=== PATIENT | male | born 1945 | race Caucasian/White ===

== ENCOUNTER 2022-12-28 09:57 | Outpatient (AMB) | payer BC, SELFPAY ==
[2022-12-28 10:05] VITALS: BP 132/70; PULSE 68; O2SAT 99; BMI 26.0
--- NOTE | 2022-12-28 10:05 | MHC.OFFVIS ---
Intake Vital Signs 12/28/22 10:05 Height 5 ft 7 in Weight 166 lb BMI 26.0 BP 132/70 Blood Pressure Location Rt brachial Position Sitting Pulse 68 Pulse Oximetry (%) 99 Oxygen Delivery Method Room Air Intake Visit Reasons: chronic cough Nursing Department Chairperson Required: No Vending Machine Technician: Vending Machine Technician offered & declined Accompanied by: Self / Same As Patient Allergies No Known Allergies Allergy (Verified 12/28/22 10:09) Medication List - Last Reconciled 12/28/22 by Lucero Chavarria LPN No Known Home Meds HPI chronic cough HPI Details William is a very pleasant 77 year old male, former smoker with less than 10 pack year smoking history, quit 55 years ago, with underlying pulmonary nodules. He was referred by PCP for pulmonary evaluation. He reports persistent dry chronic cough that started about one year ago but over the last few months has noticed significant improvement without any intervention. He denies chest tightness, wheezing or dyspnea. He was sent for chest CT which revealed small pulmonary nodules, less than 2mm, as well as mild emphysematous changes, full report below. He is quite active, exercising multiple times per week and can run 1-2 miles without any respiratory symptoms. He denies any personal or family history of respiratory conditions. 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 [facility] Social History (Updated 12/28/22 @ 10:10 by Lucero Chavarria LPN) Tobacco use type: Cigarette Cigarette Packs Per Day: 1 Years Smoked: 5 Review of Systems Const Denies chills, Denies excessive sweating, Denies fever(s), Denies headache(s) and Denies night sweats Eyes Denies dry eyes, Denies irritation and Denies itchy eyes ENT Reports Normal hearing present, Denies headache(s), Denies nasal congestion, Denies nasal discharge, Denies post nasal drip and Denies sore throat Card Denies chest pain, Denies chest pain at rest, Denies chest pain with activity, Denies claudication, Denies leg edema, Denies dyspnea, Denies dyspnea on exertion, Denies orthopnea and Denies paroxysmal nocturnal dyspnea Resp Denies chest congestion, Denies excessive phlegm production, Denies pain on inspiration, Denies pain with cough, Denies dyspnea, Denies dyspnea on exertion, Denies stridor and Denies wheezing Musc Denies myalgias Neuro Reports Normal hearing present and Denies headache(s) Endo Denies excessive sweating Mariano/Lymph Denies lymphadenopathy Aller/Immun Denies itchy eyes, Denies seasonal rhinorrhea and Denies wheezing Physical Exam Vital Signs: Last Vital Signs Pulse 68 12/28/22 10:05 BP 132/70 12/28/22 10:05 Pulse Ox 99 12/28/22 10:05 Oxygen Delivery Method Room Air 12/28/22 10:05 BMI result Body Mass Index 26.0 Const General: cooperative, healthy appearing, comfortable, no acute distress, well developed and alert Orientation/consciousness: patient oriented x3 Limitations: no limitations HEENT Head: Yes normal to inspection, Yes normocephalic and Yes atraumatic Ears: hearing grossly normal bilaterally and external ears normal Eyes General: appearance normal, both eyes and all related structures Eyelids: Yes eyelids normal Sclerae: sclerae normal EOM: EOMs intact bilaterally Neck Neck: Yes normal visual inspection and Yes no lymphadenopathy Lymphatic: no lymphadenopathy noted Chest Chest palpation & inspection: normal inspection of the chest Resp Effort & Inspection: normal respiratory effort, able to speak in complete sentences, no audible wheezes, no cough, no stridor, not tachypneic, no tripod positioning and no use of accessory muscles Auscultation: clear to auscultation bilaterally Cardio Jugular venous distension: no JVD Rate: regular rate Rhythm: regular rhythm Skin Other: warm, dry General skin exam: no rashes or lesions noted Neuro General: patient oriented x3 Cranial nerves: Yes Normal hearing present Cognition (Neuro): normal cognition Gait exam (Neuro): Normal gait present Extrem General: Yes normal to inspection, Yes capillary refill normal, Yes no clubbing, cyanosis or edema and Yes no pedal edema Psych Appearance: grossly normal and well kempt Speech and movement: Normal speech and movement present and Clear speech present Affect: normal affect Attitude: cooperative Thought process: Normal thought process present Thought content: Normal thought content present Insight: Good insight present (Psych) Judgement: Good judgement present (Psych) Results Reviewed Results Reviewed: Assessment & Plan Assessment & Plan (1) Chronic cough: Code(s): R05.3 - Chronic cough (2) Emphysema lung: Code(s): J43.9 - Emphysema, unspecified (3) Multiple pulmonary nodules: Code(s): R91.8 - Other nonspecific abnormal finding of lung field Plan William reports chronic cough has slowly improved without intervention and is not interested in any medications at this time. He denies any other respiratory symptoms and exam was unremarkable. Will send for PFT to throughly evaluate Reviewed chest CT results from 2021, which revealed emphyseamouts changes, biapical scarring and small pulmonary nodules less than 2 mm. Will send for repeat chest CT to assess for stability of noldules. If stable, no further imaging warranted unless new symptoms develop. All questions were answered and patient is in agreement of plan. Will follow up in 4-6 weeks to review results. Orders: Orders PFT pulmonary function test Today J43.9 - Emphysema, unspecified, R05.3 - Chronic cough CT chest wo IV con Today R05.3 - Chronic cough, R91.8 - Other nonspecific abnormal finding of lung field Coding Level of Care Code New Pt Level 4 (52563) Diagnoses Chronic cough R05.3 Emphysema lung J43.9 Multiple pulmonary nodules R91.8
== END 2022-12-28 10:30 | disposition home or self-care (01) ==
PROVIDERS: PCP Internal Medicine; Visit Provider Nurse Practitioner Family
DX: R05.3 Chronic cough (principal); J43.9 Emphysema, unspecified; R91.8 Other nonspecific abnormal finding of lung field
CPT/HCPCS: 99204

== ENCOUNTER → 2022-12-28 09:57 | Outpatient (BNVA) | payer BC, SELFPAY | PROVIDERS: PCP Internal Medicine; Visit Provider Nurse Practitioner Family ==

== ENCOUNTER 2023-02-02 08:02 | Outpatient (REF) | payer BC, SELFPAY ==
--- NOTE | 2023-02-02 08:51 | PFT_ITS ---
Spirometry [] Lung Volumes [] Diffusion Capacity [] Methacholine Challenge [] Flow Volume Loops [] MVV [] MIP/MEP(Max inspiratory pressure/Max expiratory pressure) [] 6 Minute Walk Test [] ABG [] Interpretation [] MTDD
== END 2023-02-02 08:03 | disposition home or self-care (01) ==
LOC: HO.RESP 08:02
PROVIDERS: PCP Internal Medicine; Visit Provider Nurse Practitioner Family
DX: R05.3 Chronic cough (principal); J43.9 Emphysema, unspecified
CPT/HCPCS: 94010; 94727; 94729

== ENCOUNTER → 2023-02-02 08:51 | Outpatient (BNV) | payer BC, SELFPAY | PROVIDERS: PCP Internal Medicine; Visit Provider Internal Medicine Pulmonary Disease | DX: J43.9 Emphysema, unspecified (principal) | CPT/HCPCS: 94060; 94727; 94729 ==

== ENCOUNTER 2023-03-02 15:05 | Outpatient (REF) | payer BC, SELFPAY ==
--- NOTE | ~2023-03-02 | CT_ITS ---
EXAMINATION: CT CHEST WITHOUT CONTRAST CLINICAL INFORMATION: Chronic cough. COMPARISON: 12/09/2022 2 TECHNIQUE: Multidetector volumetric CT imaging of the chest was done. Axial MIP volume rendering provided. Sagittal and coronal reformatted images were obtained. This CT examination was performed using dose optimization techniques as appropriate, variously including the following: *Automated exposure control *Adjustment of mA and/or kV according to patient size (this includes techniques or standardized protocols for targeted exams where dose is matched to indication/reason for exam; i.e. extremities or head) *Use of iterative reconstruction technique DLP: 171 mGy-cm FINDINGS: LUNGS: Stable mild scarring at the lung apices. Mild centrilobular emphysema. No suspicious pulmonary nodules. No focal consolidation. Linear scarring versus atelectasis in the right lower lobe. Central airways are patent. MEDIASTINUM: No bulky axillary, hilar or mediastinal lymphadenopathy. Great vessels are of normal caliber. Heart size is normal. No pericardial effusion. CORONARY ARTERY CALCIFICATION: Mild. PLEURA: There is no pleural effusion. No pleural mass or thickening. UPPER ABDOMEN: No adrenal mass. OSSEOUS STRUCTURES: No destructive bone lesion. CT/CT chest wo IV con IMPRESSION: No acute intrathoracic abnormality.
== END 2023-03-02 15:06 | disposition home or self-care (01) ==
LOC: HO.CT 15:05
PROVIDERS: PCP Internal Medicine; Visit Provider Nurse Practitioner Family
DX: R05.3 Chronic cough (principal); R91.8 Other nonspecific abnormal finding of lung field
CPT/HCPCS: 71250

== ENCOUNTER 2023-03-10 13:42 | Outpatient (AMB) | payer BC, SELFPAY ==
--- NOTE | 2023-03-10 14:32 | MHC.OFFVIS ---
Intake Vital Signs 03/10/23 14:53 BP 116/64 Blood Pressure Location Lt brachial Position Sitting Pulse 64 Pulse Source Pulse Oximeter Pulse Oximetry (%) 99 Oxygen Delivery Method Room Air Intake Visit Reasons: chronic cough: f/u ct and pft Allergies No Known Allergies Allergy (Verified 12/28/22 10:09) HPI chronic cough: f/u ct and pft HPI Details William is a very pleasant 78 year old male, former smoker with less than 10 pack year smoking history, quit 55 years ago, with underlying pulmonary nodules. He was referred by PCP for pulmonary evaluation. He was initially referred for persistent dry chronic cough that started about one year ago but over the last few months has noticed significant improvement without any intervention. He reports minimal coughing at this time. He denies chest tightness, wheezing or dyspnea. He continues to exercise multiple times per week and can run 1-2 miles without any respiratory symptoms, although does note some decrease in endurance. Today he presents to review PFT and chest CT. [facility] Social History (Updated 12/28/22 @ 10:10 by Lucero Chavarria LPN) Tobacco use type: Cigarette Cigarette Packs Per Day: 1 Years Smoked: 5 Review of Systems Const Denies chills, Denies excessive sweating, Denies fever(s), Denies headache(s) and Denies night sweats Eyes Denies dry eyes, Denies irritation and Denies itchy eyes ENT Reports Normal hearing present, Denies headache(s), Denies nasal congestion, Denies nasal discharge, Denies post nasal drip and Denies sore throat Card Denies chest pain, Denies chest pain at rest, Denies chest pain with activity, Denies claudication, Denies leg edema, Denies dyspnea, Denies dyspnea on exertion, Denies orthopnea and Denies paroxysmal nocturnal dyspnea Resp Denies chest congestion, Denies excessive phlegm production, Denies pain on inspiration, Denies pain with cough, Denies dyspnea, Denies dyspnea on exertion, Denies stridor and Denies wheezing Musc Denies myalgias Neuro Reports Normal hearing present and Denies headache(s) Endo Denies excessive sweating Mariano/Lymph Denies lymphadenopathy Aller/Immun Denies itchy eyes, Denies seasonal rhinorrhea and Denies wheezing Physical Exam Vital Signs: Last Vital Signs Pulse 64 03/10/23 14:53 BP 116/64 03/10/23 14:53 Pulse Ox 99 03/10/23 14:53 Oxygen Delivery Method Room Air 03/10/23 14:53 Const General: cooperative, healthy appearing, comfortable, no acute distress, well developed and alert Orientation/consciousness: patient oriented x3 Limitations: no limitations HEENT Head: Yes normal to inspection, Yes normocephalic and Yes atraumatic Ears: hearing grossly normal bilaterally and external ears normal Eyes General: appearance normal, both eyes and all related structures Eyelids: Yes eyelids normal Sclerae: sclerae normal EOM: EOMs intact bilaterally Neck Neck: Yes normal visual inspection and Yes no lymphadenopathy Lymphatic: no lymphadenopathy noted Chest Chest palpation & inspection: normal inspection of the chest Resp Effort & Inspection: normal respiratory effort, able to speak in complete sentences, no audible wheezes, no stridor, not tachypneic, no tripod positioning and no use of accessory muscles Auscultation: clear to auscultation bilaterally Cardio Jugular venous distension: no JVD Rate: regular rate Rhythm: regular rhythm Skin Other: warm, dry General skin exam: no rashes or lesions noted Neuro General: patient oriented x3 Cranial nerves: Yes Normal hearing present Cognition (Neuro): normal cognition Gait exam (Neuro): Normal gait present Extrem General: Yes normal to inspection, Yes capillary refill normal, Yes no clubbing, cyanosis or edema and Yes no pedal edema Psych Appearance: grossly normal and well kempt Speech and movement: Normal speech and movement present and Clear speech present Affect: normal affect Attitude: cooperative Thought process: Normal thought process present Thought content: Normal thought content present Insight: Good insight present (Psych) Judgement: Good judgement present (Psych) Results Reviewed Results Reviewed: [address] [address] [address] Scan Report Signed Patient: William Rachel MR#: [id number] : 1945 Acct:[id number] Age/Sex: 78 / M ADM Date: 03/02/23 Loc: HO.CT Attending Dr: Lea Baum NP Ordering Physician: Lea Baum NP Date of Service: 03/02/23 Procedure(s): CT chest wo IV con Accession Number(s): [id number] cc: EAGLE STEEN MD; Stucenski,Lea [employer]~ EXAMINATION: CT CHEST WITHOUT CONTRAST CLINICAL INFORMATION: Chronic cough. COMPARISON: 12/09/2022 2 TECHNIQUE: Multidetector volumetric CT imaging of the chest was done. Axial MIP volume rendering provided. Sagittal and coronal reformatted images were obtained. This CT examination was performed using dose optimization techniques as appropriate, variously including the following: *Automated exposure control *Adjustment of mA and/or kV according to patient size (this includes techniques or standardized protocols for targeted exams where dose is matched to indication/reason for exam; i.e. extremities or head) *Use of iterative reconstruction technique DLP: 171 mGy-cm FINDINGS: LUNGS: Stable mild scarring at the lung apices. Mild centrilobular emphysema. No suspicious pulmonary nodules. No focal consolidation. Linear scarring versus atelectasis in the right lower lobe. Central airways are patent. MEDIASTINUM: No bulky axillary, hilar or mediastinal lymphadenopathy. Great vessels are of normal caliber. Heart size is normal. No pericardial effusion. CORONARY ARTERY CALCIFICATION: Mild. PLEURA: There is no pleural effusion. No pleural mass or thickening. UPPER ABDOMEN: No adrenal mass. OSSEOUS STRUCTURES: No destructive bone lesion. CT/CT chest wo IV con IMPRESSION: No acute intrathoracic abnormality. Dictated By: Margaret Rai MD Signed By: <Electronically signed by Margaret Rai MD in OV> 03/08/23 1310 Assessment & Plan Assessment & Plan (1) Emphysema lung: Code(s): J43.9 - Emphysema, unspecified (2) Multiple pulmonary nodules: Code(s): R91.8 - Other nonspecific abnormal finding of lung field (3) COPD (chronic obstructive pulmonary disease): Code(s): J44.9 - Chronic obstructive pulmonary disease, unspecified Plan William reports chronic cough has decreased and continues to be hesitant about trialing medication. Agreed to trial albuterol PRN. Reviewed PFT which revealed mild obstructive defect with significant response to bronchodilators in the small the medium airways. TLC slightly increased and DLCO normal. Reviewed chest CT which revealed mild emphysema and micronodules, will repeat in one year to assess for stability and if unchanged, no need for further imaging. All questions were answered and patient is in agreement of plan. Will follow up in 6 months or sooner if needed. Orders: Orders CT chest wo IV con 11 Months R91.8 - Other nonspecific abnormal finding of lung field Medications: New albuterol sulfate 90 mcg/actuation 2 puffs inhalation Q4-6H PRN 1 ea 1RF shortness of breath or wheezing Coding Level of Care Code Est Pt Level 4 (64017) Diagnoses Emphysema lung J43.9 Multiple pulmonary nodules R91.8 COPD (chronic obstructive pulmonary disease) J44.9
[2023-03-10 14:53] VITALS: BP 116/64; PULSE 64; O2SAT 99
== END 2023-03-10 14:26 | disposition home or self-care (01) ==
PROVIDERS: PCP Internal Medicine; Visit Provider Nurse Practitioner Family
DX: J43.9 Emphysema, unspecified (principal); R91.8 Other nonspecific abnormal finding of lung field; J44.9 Chronic obstructive pulmonary disease, unspecified
CPT/HCPCS: 99214

== ENCOUNTER → 2023-03-10 13:42 | Outpatient (BNVA) | payer BC, SELFPAY | PROVIDERS: PCP Internal Medicine; Visit Provider Nurse Practitioner Family ==